=== PATIENT | female | born 1965 | race Caucasian/White ===

== ENCOUNTER 2024-02-18 12:12 | Day surgery (SDC) | payer OTHER ==
[~2024-02-18] VITALS: Ht 162.6 cm; Wt 69.0 kg
[~2024-02-18 12:12] MED LIST: ATOR20TA66 PO; OLME20TA69 PO; THYR30TA2 PO
[2024-02-18 12:49] VITALS: BP 120/76; PULSE 60; RESP 16
[2024-02-18] MEDS ORDERED: ondansetron/PF 4mg/2ml inj ONE (13:51)
[2024-02-18] MEDS ORDERED: propofol inj 20 ML IV ONE ×2 (13:51→14:05)
[2024-02-18] MEDS ORDERED: dexamethasone sod phosphate 4mg/ml inj. ONE (13:51)
[2024-02-18 14:15] VITALS: BP 96/71; PULSE 56; RESP 16; O2SAT 98
[2024-02-18 14:25] VITALS: BP 103/62; PULSE 50; RESP 18; O2SAT 94
[2024-02-18 14:35] VITALS: BP 108/66; PULSE 53; RESP 19; O2SAT 98
[2024-02-18 14:45] VITALS: BP 129/70; PULSE 50; RESP 20; O2SAT 100
== END 2024-02-18 15:02 | disposition home or self-care (01) ==
LOC: GI LAB 12:12
PROVIDERS: ATTEND Internal Medicine Gastroenterology
DX: Z12.11 Encounter for screening for malignant neoplasm of colon (principal); D12.4 Benign neoplasm of descending colon; K64.8 Other hemorrhoids; I10 Essential (primary) hypertension; E03.9 Hypothyroidism, unspecified; K21.9 Gastro-esophageal reflux disease without esophagitis; Z88.5 Allergy status to narcotic agent; Z88.8 Allergy status to other drugs, medicaments and biological substances
CPT/HCPCS: 45380; J1100; J2405; J2704; J7030; Z7512; A4620